=== PATIENT | female | born 1995 | race Caucasian/White ===

== ENCOUNTER → 2017-10-05 | Outpatient (CLI) | payer OTHER ==
--- NOTE | 2017-10-05 11:37 | RADIOLOGY IMAGING REPORT ---
FACILITY: [facility] PATIENT NAME: Denisa Stewart : 1995 MR: [id number] V: [id number] EXAM DATE: ORDERING PHYSICIAN: BANNER TECHNOLOGIST: Location: [facility] - [place] Patient: Denisa Stewart : 1995 Visit/Account:[id number] Date of Sevice: 10/05/2017 Exam type: CHEST PA AND LAT History: Pectus excavatum Comparison: None. Findings: There is a pectus excavatum deformity of the anterior chest wall producing a pseudoinfiltrate in the medial right lung field. The cardiac silhouette is normal in size. There is no evidence of pleural effusions. There is a gentle levoconvex scoliosis of the thoracic spine IMPRESSION: 1. Pectus excavatum deformity the anterior chest wall. Report Dictated By: Ana Jarrett MD at 10/05/2017 11:32 AM Report E-Signed By: Ana Jarrett MD at 10/05/2017 11:34 AM WSN:[email or web address]
== END ==
LOC: RAD 10:12
PROVIDERS: ATTEND Physician Assistant Medical
DX: Q67.6 Pectus excavatum (principal)
CPT/HCPCS: 71046

== ENCOUNTER 2018-06-10 20:24 | Emergency (ER) | payer OTHER ==
[2018-06-10] MEDS ORDERED: fentaNYL CITR 100 MCG/2 ML AMP ONE (20:34)
[2018-06-10] MEDS ORDERED: fentaNYL CITR 100 MCG/2 ML AMP IVP ONE (20:35)
[2018-06-10] MEDS ORDERED: PROPOFOL EMUL 10MG/ML 20 ML VL IV ONE (20:35)
--- NOTE | 2018-06-10 21:27 | ER Report ---
History and Physical Time Seen By MD: 20:25 Hx. of Stated Complaint: Dislocation of right knee while ice skating HPI/ROS CHIEF COMPLAINT: Fall ice skating, right knee pain HISTORY OF PRESENT ILLNESS: A 22-year-old female brought in by EMS after a fall skating. She has obvious dislocation of her patella. She was placed in position of comfort. EMS administered fentanyl 75 g intranasally. Her right lower externally is noted to be neurovascularly intact. Patient denies any other injuries. REVIEW OF SYSTEMS: Respiratory: No cough, no dyspnea. Cardiovascular: No chest pain, no palpitations. Gastrointestinal: No vomiting, no abdominal pain. Musculoskeletal: No back pain. Allergies: Coded Allergies: No Known Drug Allergies (Unverified , 06/10/18) Home Meds No Active Prescriptions or Reported Meds Constitutional Vital Sign - Last 24 Hours 06/10/18 06/10/18 06/10/18 06/10/18 20:25 20:29 20:39 20:40 Temp 98.6 Pulse 110 65 Resp 18 B/P (MAP) 108/89 128/107 (114) 118/82 (94) Pulse Ox 97 99 O2 Delivery Room Air 06/10/18 06/10/18 06/10/18 06/10/18 20:44 20:48 20:52 20:54 Pulse 53 Resp 9 B/P (MAP) 108/73 (85) 108/64 (79) 108/89 (95) Pulse Ox 100 06/10/18 06/10/18 06/10/18 06/10/18 20:56 21:00 21:04 21:05 B/P (MAP) 110/72 (85) 95/70 (78) 100/78 (85) 117/59 (78) 06/10/18 06/10/18 06/10/18 06/10/18 21:09 21:10 21:20 21:24 Pulse 58 66 Resp 13 17 B/P (MAP) 108/66 (80) 106/77 (87) Pulse Ox 98 96 06/10/18 06/10/18 21:30 21:40 Pulse 85 Resp 16 B/P (MAP) 103/61 (75) 132/82 (99) Pulse Ox 95 O2 Delivery Room Air Physical Exam General appearance: Moderate distress Respiratory: Chest is non tender, lungs are clear to auscultation. Cardiac: Regular rate and rhythm Extremities: Examination of the right lower extremity shows an obviously laterally dislocated patella. There is moderate tenderness in palpation. The right foot is neurovascularly intact. DIFFERENTIAL DIAGNOSIS: After history and physical exam differential diagnosis was considered for sprain, strain, fracture, dislocation, contusion, meniscus injury. Medical Decision Making EKG/Imaging Imaging X-ray: Two-view right knee was obtained. I viewed the images myself on the PACS system. My interpretation of the images is: The knee Appears laterally displaced. There is no obvious fracture. The radiologist interpretation had no clinically significant variation from this interpretation. X-ray: Three-view. Postreduction was obtained. I viewed the images myself on the PACS system. My interpretation of the images is:, There is proper alignment of all parts of the knee and the patella. There is no fracture noted.. The ra diologist interpretation had no clinically significant variation from this interpretation. ED Course/Re-evaluation Clinical Indication for ER IV: Hydration, IV Access ED Course Patient was admitted to an examination room. H&P was done. The differential diagnoses was considered. Patient with laterally displaced patella. Her options are discussed with her. She would like conscious sedation. Risks and benefits were discussed. Form consent was obtained. Procedure: Procedural sedation. A pre-sedation evaluation was completed on the patient. Patient is an appropriate candidate for procedural sedation. The risks of the sedation were discussed with the patient. A time out was completed. The patient was reevaluated immediately prior to initiation of sedation. The patient was sedated with propofol 100 mg IV. The patient was monitored with continuous pulse oximetry and personnel monitor. There were no complications and no significant hypoxemia. I remained at the bedside for the sedation. The total time I spent in the procedural sedation was 20 minutes. Post sedation evaluation: Patient was alert and cooperative, hemodynamically stable with appropriate respiratory status, temperature and pain control without ongoing nausea and vomiting. Procedure: Dislocation reduction. The right lateral patella location was reduced in the usual fashion without complications. Post reduction the patient's neurovascular exam is normal. Post reduction x-ray demonstrates reduction of the joint to the anatomic position. Patient was placed in a knee immobilizer. The procedure was performed by myself. Decision to Disposition Date: Jun 10, 2018 Decision to Disposition Time: 21:25 Depart Departure Latest Vital Signs Vital Signs Date Time Temp Pulse Resp B/P (MAP) Pulse Ox O2 Delivery O2 Flow Rate FiO2 06/10/18 21:40 85 16 132/82 (99) 95 Room Air 06/10/18 20:25 98.6 Impression: Primary Impression: Dislocation, patella closed Condition: Improved Disposition: HOME OR SELF-CARE Referrals: AMELIA PUGH MD New Scripts No Active Prescriptions or Reported Meds Patient Instructions: Patellar Dislocation (ED) Additional Instructions: Take ibuprofen 200 mg 3 tablets 3 times a day for pain relief Apply ice packs to your knee Wear knee immobilizer for at least two weeks All up with orthopedics Problem Qualifiers Primary Impression: Dislocation, patella closed Encounter type: initial encounter Laterality: right Qualified Codes: S83.004A - Unspecified dislocation of right patella, initial encounter ERIC SAGE DO Jun 10, 2018 21:27
[2018-06-10] MEDS ORDERED: ACET/HYDROC 5/325MG TH ER ONLY 2 TAB/BOTTLE PO ONE (21:30)
--- NOTE | 2018-06-10 21:31 | RADIOLOGY IMAGING REPORT ---
[place] [facility] [place]: Denisa Stewart : 1995 MR: [id number] V: [id number] EXAM DATE: ORDERING PHYSICIAN: ERIC SAGE TECHNOLOGIST: Location: [facility] [place] Patient: Denisa Stewart : 1995 Visit/Account:[id number] Date of Sevice: 06/10/2018 EXAMINATION: Right knee radiographs 2 views HISTORY: Fall COMPARISON: None. FINDINGS: Oblique and lateral views obtained. Bones: No definitive fracture. Notably lack of a dedicated frontal view does limit evaluation. Joint spaces: Normal. Alignment: Normal. Soft tissues: Normal. IMPRESSION: No definitive acute finding. Notably lack of a dedicated frontal view does limit evaluation. Patellofemoral alignment is also not well characterized given obliquity of the lateral view obtained. Report Dictated By: Johnathan Simpson MD at 06/10/2018 9:25 PM Report E-Signed By: Johnathan Simpson MD at 06/10/2018 9:27 PM WSN:[id number]
--- NOTE | 2018-06-10 21:33 | RADIOLOGY IMAGING REPORT ---
FACILITY: [facility] PATIENT NAME: Denisa Stewart : 1995 MR: [id number] V: [id number] EXAM DATE: ORDERING PHYSICIAN: ERIC SAGE TECHNOLOGIST: Location: [facility] - [place] Patient: Denisa Stewart : 1995 Visit/Account:[id number] Date of Sevice: 06/10/2018 EXAMINATION: Right knee radiographs 2 views HISTORY: Fall, possible dislocation COMPARISON: None. FINDINGS: Frontal and lateral views obtained. Bones: Normal. Joint spaces: Normal. Alignment: Normal. Soft tissues: Normal. IMPRESSION: Normal right knee radiographs without fracture or malalignment. Report Dictated By: Johnathan Simpson MD at 06/10/2018 9:27 PM Report E-Signed By: Johnathan Simpson MD at 06/10/2018 9:29 PM WSN:[id number]
[2018-06-10 21:40] VITALS: BP 132/82
[2018-06-11] MEDS ORDERED: EMS NS 0.9%(*) 1000 ML BAG 1,000 ML IV ONE (00:20)
== END 2018-06-10 21:41 | disposition home or self-care (01) ==
LOC: ER 20:31
DX: S83.004A Unspecified dislocation of right patella, initial encounter (principal); W00.0XXA Fall on same level due to ice and snow, initial encounter; Y93.21 Activity, ice skating
CPT/HCPCS: 27560; 73562; 96361; 96374; 99152; 99153; 99285; J2704; J3010

== ENCOUNTER → 2018-06-10 | Outpatient (CLI) | payer OTHER | LOC: AMB 20:04 | PROVIDERS: ATTEND Nurse Practitioner | DX: S83.004A Unspecified dislocation of right patella, initial encounter (principal); W00.0XXA Fall on same level due to ice and snow, initial encounter; Y93.21 Activity, ice skating; Y92.838 Other recreation area as the place of occurrence of the external cause | CPT/HCPCS: A0425; A0427 ==

== ENCOUNTER 2018-11-20 15:13 | Emergency (ER) | payer OTHER ==
[2018-11-20 15:17] VITALS: BP 123/91
--- NOTE | 2018-11-20 15:26 | ER Report ---
History and Physical Time Seen By MD: 15:26 Hx. of Stated Complaint: DX WITH BRONCHITIS 6 WEEKS AGO. COMPLETED NEBS AND STEROIDS. STILL HAS A COUGH THAT BRINGS UP GREEN MUCUS. STATES COUGHING HURTS HER CHEST AND BACK. CURRENTLY HAS CHEST PAIN AND PRESSURE FROM COUGHING HPI/ROS CHIEF COMPLAINT: Cough and chest pain HISTORY OF PRESENT ILLNESS: This is a 23-year-old female presents to the emergency department for cough and chest pain. Patient states that she was in [place] in August, [place], [place] trip. Since returning, she's had a persistent nonproductive cough until about 4 days ago, where now she has chest pain and a semi-productive greenish mucousy expectorant. She has been evaluated 2 times since returning, was given an inhaler and antibiotics, patient states that neither of these helped. Denies bloody sputum. No fevers however she states having some chills today. No nausea or vomiting. No rashes. Intermittent shortness of breath. Symptoms are worse when waking. REVIEW OF SYSTEMS: Constitutional: As above. Eyes: No discharge. ENT: No sore throat. Cardiovascular: As above. Respiratory: As above. Gastrointestinal: No abdominal pain, no vomiting. Genitourinary: No hematuria. Musculoskeletal: No back pain. Skin: No rashes. Neurological: No headache. Allergies: Coded Allergies: No Known Drug Allergies (Unverified , 06/10/18) Home Meds Active Scripts Prednisone (PREDNISONE) 20 Mg Tablet, 20 MG PO BID, #10 TAB Prov:KEISHA LE [facility]- 11/20/18 Past Medical/Surgical History The patient has a past medical and surgical history of anemia, irregular heart rhythm. Reviewed Nurses Notes: Yes Constitutional Vital Sign - Last 24 Hours 11/20/18 11/20/18 11/20/18 11/20/18 15:17 15:50 15:50 15:59 Temp 98.1 Pulse 79 84 82 Resp 20 18 18 B/P (MAP) 123/91 Pulse Ox 95 95 O2 Delivery Room Air Room Air Physical Exam General Appearance: The patient is alert, has no immediate need for airway protection and no signs of toxicity. Eyes: Pupils equal and round no pallor or injection. ENT, Mouth: Mucous membranes are moist. Respiratory: There are no retractions, slightly diminished in the bases, no other adventitious lung sounds. Cardiovascular: Regular rate and rhythm. Gastrointestinal: Abdomen is soft and non tender, no masses, bowel sounds normal. Neurological: Alert and oriented 4. Moving all activities. Following all commands. No focal neurodeficits. Skin: Warm and dry, no rashes. Musculoskeletal: Neck is supple non tender. Extremities are nontender, nonswollen and have full range of motion. DIFFERENTIAL DIAGNOSIS: After history and physical exam differential diagnosis was considered for chest pain including but not limited to myocardial ischemia, pericarditis pulmonary embolus, tuberculosis, chest wall pain, pleural inflammation and pulmonary infectious causes. Medical Decision Making Data Points Result Diagram: 11/20/18 1543 11/20/18 1543 Laboratory Hematology Test 11/20/18 15:43 Red Blood Count 5.54 M/uL (4.17-5.56) Mean Corpuscular Volume 83.1 fL (80.0-96.0) Mean Corpuscular Hemoglobin 27.4 pg (26.0-33.0) Mean Corpuscular Hemoglobin Concent 33.0 g/dL (32.0-36.0) Red Cell Distribution Width 17.0 % (11.5-14.5) Mean Platelet Volume 8.9 fL (7.2-11.1) Neutrophils (%) (Auto) 73.4 % (39.4-72.5) Lymphocytes (%) (Auto) 19.7 % (17.6-49.6) Monocytes (%) (Auto) 4.0 % (4.1-12.4) Eosinophils (%) (Auto) 2.4 % (0.4-6.7) Basophils (%) (Auto) 0.5 % (0.3-1.4) Nucleated RBC Relative Count (auto) 0.0 /100WBC Neutrophils # (Auto) 7.5 K/uL (2.0-7.4) Lymphocytes # (Auto) 2.0 K/uL (1.3-3.6) Monocytes # (Auto) 0.4 K/uL (0.3-1.0) Eosinophils # (Auto) 0.2 K/uL (0.0-0.5) Basophils # (Auto) 0.0 K/uL (0.0-0.1) Nucleated RBC Absolute Count (auto) 0.00 K/uL D-Dimer Quantitative (PE/DVT) < 0.27 ug/ml (0-0.50) Sodium Level 139 mmol/L (137-145) Potassium Level 3.5 mmol/L (3.5-5.0) Chloride Level 103 mmol/L (98-107) Carbon Dioxide Level 28 mmol/L (22-31) Blood Urea Nitrogen 16 mg/dl (7-18) Creatinine 0.90 mg/dl (0.52-1.04) Glomerular Filtration Rate Calc > 60.0 Random Glucose 103 mg/dl (75-110) Calcium Level 9.6 mg/dl (8.4-10.2) Human Chorionic Gonadotropin, Qual Negative (NEGATIVE) Chemistry Test 11/20/18 15:43 White Blood Count 10.2 k/uL (4.5-11.0) Red Blood Count 5.54 M/uL (4.17-5.56) Hemoglobin 15.2 g/dL (12.0-16.0) Hematocrit 46.0 % (34.0-47.0) Mean Corpuscular Volume 83.1 fL (80.0-96.0) Mean Corpuscular Hemoglobin 27.4 pg (26.0-33.0) Mean Corpuscular Hemoglobin Concent 33.0 g/dL (32.0-36.0) Red Cell Distribution Width 17.0 % (11.5-14.5) Platelet Count 222 K/uL (150-450) Mean Platelet Volume 8.9 fL (7.2-11.1) Neutrophils (%) (Auto) 73.4 % (39.4-72.5) Lymphocytes (%) (Auto) 19.7 % (17.6-49.6) Monocytes (%) (Auto) 4.0 % (4.1-12.4) Eosinophils (%) (Auto) 2.4 % (0.4-6.7) Basophils (%) (Auto) 0.5 % (0.3-1.4) Nucleated RBC Relative Count (auto) 0.0 /100WBC Neutrophils # (Auto) 7.5 K/uL (2.0-7.4) Lymphocytes # (Auto) 2.0 K/uL (1.3-3.6) Monocytes # (Auto) 0.4 K/uL (0.3-1.0) Eosinophils # (Auto) 0.2 K/uL (0.0-0.5) Basophils # (Auto) 0.0 K/uL (0.0-0.1) Nucleated RBC Absolute Count (auto) 0.00 K/uL D-Dimer Quantitative (PE/DVT) < 0.27 ug/ml (0-0.50) Glomerular Filtration Rate Calc > 60.0 Calcium Level 9.6 mg/dl (8.4-10.2) Human Chorionic Gonadotropin, Qual Negative (NEGATIVE) Coagulation Test 11/20/18 15:43 D-Dimer Quantitative (PE/DVT) < 0.27 ug/ml EKG/Imaging EKG Interpretation 12 lead EKG: Time of EKG 1551. Rhythm: Normal sinus rhythm, ventricular rate 84 ppm. [place]: normal QRS: normal ST segments: No ST depression or elevation identified. Imaging Location: [facility] Patient: Denisa Stewart : 1995 Visit/Account:[id number] Date of Sevice: 11/20/2018 2 VIEWS CHEST INDICATION: Cough, chest pain. Bronchitis for six weeks. COMPARISON: X-ray examination September 27, 2017 FINDINGS: Heart size within normal limits. Pectus excavatum deformity is once again identified. Lung parenchyma is clear without focal infiltrate or consolidation. No effusion or pneumothorax. No acute bony finding. IMPRESSION: 1. No acute cardiopulmonary process. 2. No evidence of focal pulmonary infiltrate. Report Dictated By: Leon Abrams MD at 11/20/2018 4:45 PM Report E-Signed By: Leon Abrams MD at 11/20/2018 4:46 PM WSN:[facility] ED Course/Re-evaluation Clinical Indication for ER IV: Hydration, IV Access ED Course The patient was admitted to room. A history of square obtained. Differential diagnoses were considered. An IV was started. A CBC, CMP, d-dimer were obtained. Laboratory studies unremarkable, negative d-dimer. EKG showing sinus rhythm. Two-view chest x-ray negative for any acute cardiopulmonary process. I did review the results with the patient. She did get 1 DuoNeb while in the ER. She sees feeling better after the nebulizer treatment. She was also given 30 mg IV Toradol. I do feel this is a viral illness, and has been on and off since August, she was started on a short burst of prednisone. Instructed to follow-up with her primary care provider or student health for reevaluation if no improvem ent. Decision to Disposition Date: Nov 20, 2018 Decision to Disposition Time: 17:15 Depart Departure Latest Vital Signs Vital Signs Date Time Temp Pulse Resp B/P (MAP) Pulse Ox O2 Delivery O2 Flow Rate FiO2 11/20/18 15:59 82 18 11/20/18 15:50 95 Room Air 11/20/18 15:17 98.1 123/91 Impression: Primary Impression: Viral bronchitis Condition: Improved Disposition: HOME OR SELF-CARE New Scripts Prednisone (PREDNISONE) 20 Mg Tablet 20 MG PO BID, #10 TAB Prov: KEISHA LE 11/20/18 Patient Instructions: Acute Bronchitis (ED) Additional Instructions: There were no concerning findings on Xray, lab studies or EKG, no indication of a blood clot in your lungs. Please take the Prednisone as prescribed. Use the inhaler as needed for cough. Take 650-1000mg of Tylenol every 8 hours for additional pain relief, while taking steroids. Follow up with your PCP or Student health within one week if no improvement. Drink plenty of water. Get plenty of rest. You can try adding Zyrtec or Claritin once a day for the next 7 days too, as there may be a seasonal allergy component to your symptoms as well. Return to the ED for any other concerns or worsening symptoms. KEISHA LE Nov 20, 2018 15:26
[2018-11-20] MEDS ORDERED: ALBUTEROL/IPRATROPIUM 3 ML NEB NEB ONE (15:45)
[2018-11-20] MEDS ORDERED: NS(*) 0.9% 1000 ML BAG 1,000 ML IV ONE (15:47)
--- NOTE | 2018-11-20 15:58 | EKG ---
[place] [facility] [place] ANGELA ALMEIDA : [id number] MR: [id number] V: [id number] EXAM DATE: ORDERING PHYSICIAN: KEISHA LE TECHNOLOGIST: ADRIANNA Mota Reason : CP\SOB Blood Pressure : / mmHG Vent. Rate : 084 BPM Atrial Rate : 084 BPM P-R Int : 142 ms QRS Dur : 088 ms QT Int : 372 ms P-R-T Axes : 055 062 037 degrees QTc Int : 439 ms Normal sinus rhythm with sinus arrhythmia Normal ECG No previous ECGs available Confirmed by Shashi Castillo ([id number]) on 11/20/2018 8:04:43 PM Referred By: ER Confirmed By:Shashi Osorio
[2018-11-20 16:22] LABS: PLATELET COUNT, AUTOMATED 222 K/uL (150-450)
--- NOTE | 2018-11-20 16:50 | RADIOLOGY IMAGING REPORT ---
FACILITY: [facility] [place] PATIENT NAME: Denisa Stewart : 1995 MR: [id number] V: [id number] EXAM DATE: ORDERING PHYSICIAN: KEISHA LE TECHNOLOGIST: Location: [facility] [place] Patient: Denisa Stewart : 1995 Visit/Account:[id number] Date of Sevice: 11/20/2018 2 VIEWS CHEST INDICATION: Cough, chest pain. Bronchitis for six weeks. COMPARISON: X-ray examination September 27, 2017 FINDINGS: Heart size within normal limits. Pectus excavatum deformity is once again identified. Lung parenchyma is clear without focal infiltra te or consolidation. No effusion or pneumothorax. No acute bony finding. IMPRESSION: 1. No acute cardiopulmonary process. 2. No evidence of focal pulmonary infiltrate. Report Dictated By: Leon Abrams MD at 11/20/2018 4:45 PM Report E-Signed By: Leon Abrams MD at 11/20/2018 4:46 PM WSN:[email or web address]
[2018-11-20] MEDS ORDERED: KETOROLAC 30 MG/ML VIAL IVP ONE (17:00)
[2018-11-20] MEDS ORDERED: PRED20TA6 PO (17:01)
== END 2018-11-20 17:29 | disposition home or self-care (01) ==
LOC: ER 15:31
DX: J20.8 Acute bronchitis due to other specified organisms (principal)
CPT/HCPCS: 71046; 84703; 85025; 85379; 93005; 94640; 96374; 99284; J1885; J7030; J7620; 82310; 82374; 82435; 82565; 82947; 84132; 84295; 84520